=== PATIENT | female | born 1985 | race Caucasian/White ===

== ENCOUNTER 2020-12-17 16:28 | Outpatient (CLI) | payer BC, SELFPAY | END 2020-12-17 16:29 | disposition home or self-care (01) | LOC: ANHCOVIDVC 16:28 | PROVIDERS: PCP Internal Medicine | DX: Z23 Encounter for immunization (principal) | CPT/HCPCS: 0001A; 91300 ==

== ENCOUNTER 2021-01-07 13:26 | Outpatient (CLI) | payer BC, SELFPAY | END 2021-01-07 13:27 | disposition home or self-care (01) | LOC: ANHCOVIDVC 13:26 | PROVIDERS: PCP Internal Medicine | DX: Z23 Encounter for immunization (principal) | CPT/HCPCS: 0002A; 91300 ==

== ENCOUNTER 2021-12-31 15:23 | Outpatient (CLI) | payer BC, SELFPAY | END 2021-12-31 15:24 | disposition home or self-care (01) | PROVIDERS: PCP Internal Medicine; Visit Provider Obstetrics & Gynecology | DX: N99.85 Post endometrial ablation syndrome (principal) | CPT/HCPCS: 36415; 86850; 86900; 86901 ==

== ENCOUNTER 2022-01-06 00:32 | Day surgery (SDC) | payer BC, SELFPAY ==
[2021-12-28 13:44] VITALS: BMI 21.7
--- NOTE | 2021-12-28 13:59 | PC.NURSE ---
Report to the Outpatient Waiting Room, entrance under the green pavilion located off [facility], at time 6:00 on date 01/06/22. OR Time: 7:30. - You and your visitor will be asked a series of questions to screen for COVID 19 for your protection. - A mask is required within the hospital. One visitor will be allowed to accompany the patient into the hospital. Patients visitor will be instructed to remain with patient at all times or leave the building. We will allow the visitor to come back to the postoperative area when patient is ready. Preoperative COVID Testing Requirements: No COVID Test needed if: (proof is required; if not received patient will have Rapid Test prior to entry) - Patient has received COVID Vaccine at least 14 days prior to procedure date or - Patient has positive COVID test result within last 90 days of surgery date. COVID Test needed if above criteria is not met Patients may have clear liquids (water, carbonated beverages, clear teas, apple juice) until 3 hours prior to surgery (4:30) with a maximum of 20 ounces. - No food from midnight until time of surgery Take the following medications with a SIP of water the morning of surgery: NONE Medications to discontinue per physician: VITAMINS/SUPPLEMENTS Date to take last dose: 01/02/22 Please no make-up, nail cuban, hairspray, perfume, deodorant, or body powder the day of surgery. No jewelry (including any body piercings) or valuables the day of surgery, leave them at home. Please take a shower or bath the night before, or the morning of, surgery with an antibacterial soap. Wear comfortable, loose fitting clothing. - Jewelry must be removed prior to entering the operating room. Rings and piercings that are not removed may be cut off. - The hospital will not accept responsibility for valuables. - Please leave all valuables, including medications, at home the day of surgery. If you are going home after surgery, a licensed concrete pile driver operator must drive you home. - NO public transportation without another adult. - We recommend that an adult stay with you for 24 hours following discharge. - We also recommend that you do not drive, make important decision, drink alcoholic beverages, or take any drugs that were not prescribed by your health care provider for at least 24 hours after your discharge time. Follow any additional instructions given to you from your surgeon. Telephone instructions given to DEREK PICKARD and asked if any additional questions and then verbalized understanding. Patient advised to call surgeon office or pre surgery nurse liaison [phone] if any additional questions.
--- NOTE | 2022-01-05 15:33 | P.PNAN_ITS ---
Anes - Initial Pre Proc Eval Procedure: Operation Date: 01/06/22 07:30 Proposed Procedures p Robotic Assisted Total Laparoscopic Hysterectomy with Bilateral Salpingectomy - Geoffrey Sheikh MD Date/Time: 01/05/22 15:33 Surgeon: Geoffrey Sheikh MD Pre Op Diagnosis: menometrorrhagia Patient Data Age: 36 Gender: F Height: 1.68 m Weight: 61.24 kg Allergies Allergy/AdvReac Type Severity Reaction Status Date / Time loratadine Allergy Severe see below Verified 12/28/21 13:42 Home Medications Medication Instructions Recorded Confirmed Type citalopram 10 mg tablet 10 mg PO HS 11/09/21 12/28/21 History fexofenadine 60 mg tablet 60 mg PO Q12H 11/09/21 12/28/21 History montelukast 10 mg tablet 10 mg PO HS 11/09/21 12/28/21 History lactobacillus combo no.11 1 cap PO DAILY 12/28/21 12/28/21 History [Probiotic] multivitamin 1 tablet PO DAILY 12/28/21 12/28/21 History Patient hx anesthesia problems: none Family hx anesthesia problems: none Results Review: All pre-operative results and documents have been reviewed as part of the pre-operative evaluation. [facility] Past Medical History Medical History (Updated 01/06/22 @ 07:05 by Kraig Cruz MD) Anxiety Leiomyoma Migraines Surgical History Surgical History H/O ovarian cystectomy 05/19/17 lt ovarian cystectomy w/Hscope D&C/novasure ablation--dermoid/benign mature tertoma History of oophorectomy, unilateral 04/09/18 ovarian torsion History of tonsillectomy 1993 Family History Family History Father Hypertension Grandparent Heart disease paternal grandfather Diabetes mellitus paternal grandfather Social History Social History Smoking status: Never smoker Alcohol intake: never Substance use: never Substance use type: does not use Living arrangements: with family Additional living arrangements comments: spouse Additional occupation/education comments: teacher Gender identity (if verbalized by the patient): Female Sexual Orientation (if Verbalized by the Patient): Straight or Heterosexual Spiritual care concerns: No Anes - Eval Final PreProcedure Day of Procedure 01/05/22 15:33 Patient weight: normal Heart: regular rate and rhythm Lungs: clear to auscultation and normal air movement Airway: Mallampati scale class II Neurological: alert and oriented Last oral intake: >/= 8 hours ASA classification: II Emergent: no Anesthetic plan: proceed Anesthesia type and monitoring: general ETT Results Review: All pre-operative results and documents have been reviewed as part of the pre-operative evaluation. Informed Consent: The patient's anesthetic plan and its attendant risks and benefits were discussed with the patient/family/POA. Questions were solicited and answers provided to the satisfaction of the patient/family/POA.
--- NOTE | 2022-01-05 15:44 | PM.IMHP ---
H&P: HPI History of Present Illness Date/Time: 01/05/22 15:44 36-year-old 2 para 2001 female presents for surgical correction of heavy vaginal bleeding cramping clotting and pelvic pain. She had an endometrial ablation years ago and had done reasonably well but is now having cyclical pain and discomfort over the past 3-4 months. She has been evaluated emergency room with CT scan which ruled out appendicitis also ultrasound revealed no other significant abnormalities. Of significance she also has a history of right salpingo-oophorectomy due to ovarian torsion and a left ovarian cystectomy due to dermoid cyst. Denies any urinary and or stool symptomatology. Chief Complaint: Pelvic pain Review of Systems Review of Systems: All systems reviewed & are unremarkable except as noted in HPI and below PMFSH Past Medical History Medical History Anxiety Migraines Surgical History Surgical History H/O ovarian cystectomy 05/19/17 lt ovarian cystectomy w/Hscope D&C/novasure ablation--dermoid/benign mature tertoma History of oophorectomy, unilateral 04/09/18 ovarian torsion History of tonsillectomy 1993 Family History Family History Father Hypertension Grandparent Heart disease paternal grandfather Diabetes mellitus paternal grandfather Social History Social History Smoking status: Never smoker Alcohol intake: never Substance use: never Substance use type: does not use Additional living arrangements comments: spouse Additional occupation/education comments: teacher Gender identity (if verbalized by the patient): Female Sexual Orientation (if Verbalized by the Patient): Straight or Heterosexual Spiritual care concerns: No Meds Home Medications and Allergies Home Medications Medication Instructions Recorded Confirmed Type citalopram 10 mg tablet 10 mg PO HS 11/09/21 12/28/21 History fexofenadine 60 mg tablet 60 mg PO Q12H 11/09/21 12/28/21 History montelukast 10 mg tablet 10 mg PO HS 11/09/21 12/28/21 History lactobacillus combo no.11 1 cap PO DAILY 12/28/21 12/28/21 History [Probiotic] multivitamin 1 tablet PO DAILY 12/28/21 12/28/21 History Allergies Allergy/AdvReac Type Severity Reaction Status Date / Time loratadine Allergy Severe see below Verified 12/28/21 13:42 Exam Const: General: cooperative, healthy appearing and comfortable Resp: Effort & Inspection: normal respiratory effort Auscultation: clear to auscultation bilaterally Cardio: Rate: regular rate Rhythm: regular rhythm GI: Inspection: normal to inspection Auscultation: normal bowel sounds : External Female Exam: normal external appearance Speculum Exam - Vagina: normal appearance of the vagina Speculum Exam - Cervix: normal appearance of the cervix Bimanual exam- vagina & uterus: enlarged ( 8-10 week size) and Uterine tenderness Bimanual Exam- Adnexa, other: normal adnexae Assessment and Plan Assessment and plan (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 In light of prior endometrial ablation I have discussed with her the potential for difficulty with proceeding laparoscopically but not likely to need have conversion to open procedure though this has been discussed.
[2022-01-06] VITALS (12 sets, daily range): BP systolic 92–112; BP diastolic 54–77; PULSE 63–101; RESP 9–16; TEMP 36.2–37.1; O2SAT 96–100
[2022-01-06] MEDS: LACTATED RINGERS 1,000 ML 30 ML IV CONT ×2 (06:30→09:07)
[2022-01-06] MEDS: ACETAMINOPHEN 500 MG TABLET 1000 MG PO (06:44)
[2022-01-06] MEDS: KETOROLAC 15 MG/ML VIAL (*BKC) IV PUSH (06:56)
--- NOTE | 2022-01-06 07:14 | WPDHPUPDATE1 ---
History and Physical Update Update Date/Time: 01/06/22 07:14 History and Physical has been reviewed, including an updated exam of the patient. There are NO changes in the patient's condition. Risks, benefits, and alternatives have been discussed and questions answered. Patient agrees to proceed with procedure.
--- NOTE | 2022-01-06 09:24 | PM.OP ---
Procedure Note - Brief Procedure Note - Brief Date of procedure: 01/06/22 Pre-op diagnosis: menometrorrhagia Failed endometrial ablation Post ablation syndrome Post-op diagnosis: Same Procedure performed: Buttock assisted laparoscopic hysterectomy with left salpingectomy (prior right salpingectomy with RSO) Description of procedure: Patient was prepped and draped usual manner for this procedure. Cervical instruments were placed for uterine mobility throughout the case. Attention was then placed the abdomen and trocar sites marked incised and trocars placed under direct visualization. The DA Mehrdad system of then docked to these trocars and instruments were placed under direct visualization. Surgeon moved to the console have her stool left mesosalpinx was cauterized and cut and the tube was removed. Ovarian utero-ovarian ligament was then cauterized cut and the round ligament was cauterized and cut bilaterally. Bladder flap was developed without difficulty posterior leaf of the broad ligament was also incised to skeletonize the uterine vessels. The uterine vessels were cauterized and cut without difficulty. Posterior colpotomy incision was made and carried circumferentially to remove the cervix from the vaginal cuff. Uterus was then delivered into the vagina and the cuff was closed using V lock suture from the right angle to the midline from the left angle to midline in a running manner. Irrigation was undertaken there was no bleeding at this point seizure was considered terminated. Gas allowed to escape incisions approximated using 4-0 Monocryl patient was then sent to recovery room in stable condition. Anesthesia: GLMA Surgeon: Geoffrey Sheikh MD Estimated blood loss (mL): 100 Drains: No Packing: No Pathology: Yes Complications: No immediate complications Condition: Stable Disposition: PACU Findings: Mildly enlarged uterus. Right tube and ovary surgically absent. Normal-appearing appendix.
[2022-01-06] MEDS: fentaNYL CITRATE INJ (*CRX) 100 MCG/2 ML VIAL 25 MCG IV PUSH ×4 (09:28→10:17)
[2022-01-06] MEDS: DEXTROSE 5%/0.45% SOD CHL 1,000 ML 125 ML IV CONT (10:58)
--- NOTE | 2022-01-06 11:27 | OBPPTRN ---
1040 Patient transferred to post room #291 via bed. Support person present. Oriented to unit, room, information board, admission packet and security measures. Patient verbalizes understanding.
--- NOTE | 2022-01-06 12:49 | PC.NURSE ---
On 01/06/22, the student, Husam Kaba, provided care and completed [facility] documentation on this patient. I have reviewed the student's documentation and agree with the findings.
[2022-01-06] MEDS: LACTATED RINGERS 1,000 ML 125 ML IV CONT ×2 (13:42→21:27)
[2022-01-06] MEDS: SCOPOLAMINE 1.5 MG PATCH TRANSDERM (14:09)
[2022-01-06] MEDS: KETOROLAC 30 MG/ML VIAL (*BKC) IV PUSH (14:16)
[2022-01-06] MEDS: HYDROcodone/acetaminophen (*CRX) 5-325 MG TABLET 1 TAB PO ×2 (17:39→21:25)
[2022-01-06] MEDS: CITALOPRAM HYDROBROMIDE 10 MG TABLET PO (20:10)
[2022-01-06] MEDS: MONTELUKAST SODIUM 10 MG TABLET PO (20:10)
[2022-01-07 00:55] VITALS: BP 85/53; PULSE 77; RESP 16; TEMP 36.8; O2SAT 97
[2022-01-07] MEDS: IBUPROFEN 600 MG TABLET PO (03:26)
[2022-01-07] MEDS: HYDROcodone/acetaminophen (*CRX) 5-325 MG TABLET 1 TAB PO ×2 (03:26→09:11)
[2022-01-07 03:36] VITALS: BP 87/53; PULSE 72; RESP 16; TEMP 36.6; O2SAT 98
[2022-01-07 05:44] LABS: Basophils Percent Auto 0.2 % (0.2-1.2); Eosinophils Absolute Auto 0.1 K/mm3 (0-0.3); Eosinophils Percent Auto 0.7 % (0-4.4); Hematocrit 34.3 % (37.0-47.0); Hemoglobin 11.5 g/dL (12.0-15.0); Immature Granulocyte Absolute 0.07 K/mm3 (0.00-0.031); Immature Granulocyte Percent A 0.6 % (0-0.5); Lymphocytes Absolute Auto 2.52 K/mm3 (0.9-3.2); Lymphocytes Percent Auto 20.8 % (18.3-44.2); Mean Corpuscular HGB Conc 33.5 g/dl (32-36); Mean Corpuscular Hemoglobin 32.1 pg (26-34); Mean Corpuscular Volume 95.8 fl (80-100); Mean Platelet Volume 9.8 fl (7.4-10.4); Monocytes Absolute Auto 0.7 K/mm3 (0.1-0.6); Monocytes Percent Auto 5.9 % (2.6-8.5); Neutrophils Absolute Auto 8.7 K/mm3 (1.3-6.7); Neutrophils Percent Auto 71.8 % (45.5-73.1); Platelet Count Result 204 k/mm3 (150-375); Red Blood Count 3.58 M/mm3 (4.2-5.4); Red Cell Distribution Width 11.9 % (11.5-14.5); White Blood Count 12.1 K/mm3 (4.5-10.0)
[2022-01-07 08:00] VITALS: BP 107/61; PULSE 61; RESP 18; TEMP 36.8; O2SAT 100
[2022-01-07 08:30] VITALS: BP 92/63; PULSE 64; RESP 16; TEMP 36.6; O2SAT 100
--- NOTE | 2022-01-07 08:57 | P.PNAN_ITS ---
Anes - Prog Note Post-Op Date/Time: 01/07/22 08:57 Cardiovascular status: normal Respiratory status: normal Airway patency: baseline Mental status: baseline Post-Op hydration status: normal Vital Signs: Last Vital Signs Temp 36.6 C 01/07/22 08:30 Pulse 64 01/07/22 08:30 Resp 16 01/07/22 08:30 BP 92/63 L 01/07/22 08:30 Pulse Ox 100 01/07/22 08:30 Pain Score (VAS): 0 I/O: Intake & Output 01/06/22 01/07/22 01/07/22 23:59 07:59 15:59 Intake Total 1740 300 Output Total 300 500 Balance 1440 -200 Laboratory Tests 01/07/22 03:35 01/07/22 03:35 WBC 12.1 H RBC 3.58 L Hgb 11.5 L Hct 34.3 L MCV 95.8 MCH 32.1 MCHC 33.5 RDW 11.9 Plt Count 204 MPV 9.8 Immature Gran % (Auto) 0.6 H Neut % (Auto) 71.8 Lymph % (Auto) 20.8 [facility] % (Auto) 5.9 Eos % (Auto) 0.7 Baso % (Auto) 0.2 Lymph # (Auto) 2.52 [facility] # (Auto) 0.7 H Eos # (Auto) 0.1 Baso # (Auto) 0.0 Abs Immat Gran (auto) 0.07 H Absolute Neuts (auto) 8.7 H Absolute Nucleated RBC 0.0 Nucleated RBC % 0.0 Post-procedural complaints: none Patient Feedback: Patient satisfied with anesthetic care.
[2022-01-07] MEDS: SIMETHICONE 80 MG TAB.CHEW PO (09:10)
[2022-01-07] MEDS: DOCUSATE SODIUM 100 MG CAPSULE PO (09:25)
== END 2022-01-07 09:33 | disposition home or self-care (01) ==
LOC: ANHSURGERY 06:17 → ANHOB2 10:34
PROVIDERS: PCP Internal Medicine; Visit Provider Obstetrics & Gynecology
PROC: (CPT 58571; principal; 2022-01-06 07:30)
DX: N92.1 Excessive and frequent menstruation with irregular cycle (principal); N84.1 Polyp of cervix uteri; N73.6 Female pelvic peritoneal adhesions (postinfective); R10.2 Pelvic and perineal pain; N99.85 Post endometrial ablation syndrome; F41.9 Anxiety disorder, unspecified
CPT/HCPCS: 58571; S2900; 36415; 85025; 88307; 99199; A9270; J1100; J1170; J1885; J2250; J2405; J2704; J2710; J3010; J7030; J7120

== ENCOUNTER 2023-04-27 11:48 | Emergency (ER) | payer BC, SELFPAY ==
--- NOTE | ~2023-04-27 | XR_ITS ---
EXAMINATION: XR elbow LT min 3V DATE: 04/27/2023 12:29 INDICATION: Left elbow pain. Fall. TECHNIQUE: 5 views of left elbow were obtained. COMPARISON: None. FINDINGS: Bone alignment is normal. No fracture. Joint spaces are normal. There is a large elbow join t effusion. IMPRESSION: 1. Large elbow joint effusion. No fracture identified. Reviewed, dictated and finalized at location A.
[2023-04-27 12:01] VITALS: BP 118/63; PULSE 87; RESP 16; TEMP 36.5; O2SAT 99
--- NOTE | 2023-04-27 12:16 | ED.UPPEXIN ---
HPI - Extremity Injury (Upper) General Chief Complaint: Extremity Injury, Upper Stated Complaint: Lt Hand and Arm Pain Due To Fall Time Seen by Provider: 04/27/23 12:08 Source: patient and RN notes reviewed Mode of arrival: ambulatory Limitations: no limitations History of Present Illness HPI narrative: Patient presents today complaining of left elbow pain. She fell yesterday onto an outstretched hand while she was bowling. She does report some tingling to the left hand and states she is unable to fully extend her elbow. Currently rates her pain 04/18 and has been taking ibuprofen and applying ice with no relief. Related Data Home Medications Medication Instructions Recorded Confirmed citalopram 10 mg tablet 10 mg PO HS 11/09/21 04/27/23 fexofenadine 60 mg tablet (Chen 60 mg PO Q12H 11/09/21 04/27/23 Allergy) montelukast 10 mg tablet 10 mg PO HS 11/09/21 04/27/23 multivitamin 1 tablet PO DAILY 12/28/21 04/27/23 Allergies Allergy/AdvReac Type Severity Reaction Status Date / Time loratadine Allergy Severe see below Verified 04/27/23 11:51 Review of Systems Review of Systems: CONSTITUTIONAL: Denies body aches, fever, chills, or sweats. EYES: Denies visual changes, redness, or discharge. ENT: Denies rhinorrhea, congestion, sore throat, or otalgia. CARDIOVASCULAR: Denies chest pain, palpitations, or edema. RESPIRATORY: Denies cough or dyspnea. GASTROINTESTINAL: Denies abdominal pain, nausea, vomiting, or diarrhea. GENITOURINARY: Denies dysuria or hematuria. SKIN: Denies rash, itching, or wounds. MUSCULOSKELETAL: Denies back pain, or myalgia. + left elbow pain NEUROLOGIC: Denies headache, numbness, or weakness.+ tingling of left hand PSYCH: Denies depression or anxiety. [facility] Past Medical History Medical History Anxiety Leiomyoma Migraines Surgical History Surgical History H/O ovarian cystectomy 05/19/17 lt ovarian cystectomy w/Hscope D&C/novasure ablation--dermoid/benign mature tertoma H/O: hysterectomy (01/06/22) RATLH with Left salpingectomy History of oophorectomy, unilateral 04/09/18 ovarian torsion History of tonsillectomy 1993 Family History Family History Father Hypertension Grandparent Heart disease paternal grandfather Diabetes mellitus paternal grandfather Social History Social History Smoking status: Never smoker Alcohol intake: never Substance use: never Substance use type: does not use Living arrangements: with family Additional living arrangements comments: spouse Occupation/Education: occupation Additional occupation/education comments: teacher Gender identity (if verbalized by the patient): Female Sexual Orientation (if Verbalized by the Patient): Straight or Heterosexual Spiritual care concerns: No Comments At time of signature, I have reviewed and agree with nursing past medical, surgical, social and family history unless otherwise noted. Please see nursing chart for further information. There is no relevant family history pertinent to the presenting complaint Exam Narrative: GENERAL: Well-appearing, well-nourished, and in no acute distress. HEAD: Normocephalic, atraumatic. EYES: EOMI. No redness or drainage. Conjunctivae normal. ENT: Mucous membranes pink and moist. NECK: Normal AROM. CHEST: No respiratory distress. EXTREMITIES: Left arm: No tenderness to the posterior elbow. Patient has tenderness to the antecubital fossa with a extension of the elbow. Patient does not have full extension of the elbow as she states it will not fully extend. Pain to the anterior elbow with internal and external rotation of the wrist. No edema, ecchymosis, or erythema of the arm. No deformity n
== END 2023-04-27 12:45 | disposition home or self-care (01) ==
PROVIDERS: Emergency Provider Nurse Practitioner; PCP Internal Medicine
DX: M25.422 Effusion, left elbow (principal); F41.9 Anxiety disorder, unspecified
CPT/HCPCS: 73080; 99213; A4565; G0463

== ENCOUNTER → 2023-08-19 10:42 | Outpatient (CLI) | payer BC, SELFPAY ==
--- NOTE | ~2023-08-19 | MM_ITS ---
EXAMINATION: MM screening kathya BI w sesar HISTORY: Screening TECHNIQUE: Craniocaudal and mediolateral oblique 3-D tomosynthesis images were obtained and synthetic 2-D images were generated. CAD analysis was submitted and interpreted. COMPARISON: No prior mammogram is available for comparison at this institution. BREAST PARENCHYMAL COMPOSITION: The breasts are extremely dense, which lowers the sensitivity of mamm ography FINDINGS: There is no evidence of suspicious mass, calcification, or architectural distortion to sugg est malignancy in either breast. There has been no suspicious interval change. IMPRESSION: 1. No mammographic evidence of malignancy. 2. Recommend routine screening mammography in one year. BI-RADS Category 1: Negative Reviewed, dictated and finalized at location A. MERY WORKER
== END ==
PROVIDERS: PCP Obstetrics & Gynecology; Visit Provider Obstetrics & Gynecology
DX: Z12.31 Encounter for screening mammogram for malignant neoplasm of breast (principal)
CPT/HCPCS: 77063; 77067

== ENCOUNTER 2025-02-28 08:15 | Outpatient (CLI) | payer BC, SELFPAY ==
--- NOTE | ~2025-02-28 | MM_ITS ---
EXAMINATION: MM screening kathya BI w sesar HISTORY: Screening TECHNIQUE: Craniocaudal and mediolateral oblique 3-D tomosynthesis images were obtained and synthetic 2-D images were generated. CAD analysis was submitted and interpreted. COMPARISON: 08/19/2023 BREAST PARENCHYMAL COMPOSITION: Dense: The breasts are extremely dense, which lowers the sensitivity of mammography. FINDINGS: There is no evidence of suspicious mass, calcification, or architectural distortion to sugg est malignancy in either breast. There has been no suspicious interval change. IMPRESSION: 1. No mammographic evidence of malignancy. 2. Recommend routine screening mammography in one year. BI-RADS Category 1: Negative Reviewed, dictated and finalized at location []
--- OUTSIDE RECORDS SUMMARY | 2025-02-28 08:18 | XMS_ITS | Clinical Summary ---
Author Organization [facility] Address [address] [place] [address] Care Team Providers Care Brick Burner Head Name Role Phone Keyanna Argueta MD Primary Care Provider [phone] Source Comments [facility],non-[facility] Affiliates and Associated Physician Practices is amultiple site organization consisting of ambulatory clinics and hospital sitesin [place], [place]. This disclosure is being madepursuant to the Care Everywhere program and may not contain all information available regarding this patient. 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 Gender Identity Not on file Sexual Orientation Not on file Last Filed Vital Signs Vital Sign Reading Time Taken Comments Blood Pressure 145/95 05/26/2013 10:42 PM CDT Pulse - - Temperature 36.5 C (97.7 F) 05/26/2013 10:42 PM CDT Respiratory Rate 16 05/26/2013 10:42 PM CDT Oxygen Saturation 100% 05/26/2013 10:42 PM CDT Inhaled Oxygen Concentration - - Weight 77.1 kg (170 lb) 05/26/2013 10:42 PM CDT Height 167.6 cm (5' 6 ) 05/26/2013 10:42 PM CDT Body Mass Index 27.44 05/26/2013 10:42 PM CDT Plan of Treatment Health Maintenance Due Date Last Done Comments LIPID TESTING 1983 MAMMOGRAM 1983 HIV SCREENING 1998 HEPATITIS C SCREENING 01/04/2001 DTAP/TDAP/TD VACCINES (1 - Tdap) 2002 HEPATITIS B VACCINE (1 of 3 - 19+ 3-dose series) 2002 COVID-19 VACCINE (1 - 2023-2 5 season) 2024 DEPRESSION SCREENING 10/10/2024 INFLUENZA VACCINE (Season Ended) 2025 ZOSTER VACCINE (1 of 2) 2033 HIB VACCINE Aged Out No longer eligi ble based on patient's age to complete this topic HPV VACCINE Aged Out No longer eligi ble based on patient's age to complete this topic MENINGOCOCCAL (Group B) VACC INE SHARED DECISION-MAKING Aged Out No longer eligibl e based on patient's age to complete this topic MENINGOCOCCAL GROUPS A/C/Y/W VACCINE Aged Out No longer eligible b ased on patient's age to complete this topic PNEUMOCOCCAL VACCINE Aged Out No long er eligible based on patient's age to complete this topic Insurance [facility] Care Teams Brick Burner Head Relationship Specialty Start Date End Date Keyanna Argueta MD [address] [place] [address] [place] [address] [phone] PCP - General 01/07/22
--- OUTSIDE RECORDS SUMMARY | 2025-02-28 08:18 | XMS_ITS | Clinical Summary ---
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 Gender Identity Not on file Sexual Orientation Not on file Plan of Treatment Health Maintenance Due Date Last Done Comments Hepatitis C Virus (HCV) Screening 1983 TdaP Immunization 1983 Hepatitis B Immunization (1 of 3 - 19+ 3-dose series) 2002 Pap Smear 01/10/2004 Cervical Cancer Screening (CCS) 2013 HPV/Cotest 2013 Discussion re Starting/Frequency of Mammograms 2023 Influenza Immunization (#1) 06/10/202407/10, 07/24/2019, 09/10/2018, Additional history exists SARS-COV-2 Immunization ( season) 2024 Respiratory Syncytial Virus (RSV) Immunization (Adult) (1 - 1-dose 75+ series) 2058 Meningococcal Immunization (ACWY) Aged Out No longer eligible based on patient's age to complete this topic Pneumococcal Immunization Combined Aged Out No longer eligible based on patient's age to complete this topic Rotavirus Immunization Aged Out No lo nger eligible based on patient's age to complete this topic
== END 2025-02-28 08:16 | disposition home or self-care (01) ==
LOC: CHSIMG 08:15
PROVIDERS: PCP Obstetrics & Gynecology; Visit Provider Obstetrics & Gynecology
DX: Z12.31 Encounter for screening mammogram for malignant neoplasm of breast (principal)
CPT/HCPCS: 77063; 77067

== ENCOUNTER 2025-05-20 15:47 | Emergency (ER) | payer BC, SELFPAY ==
--- NOTE | ~2025-05-20 | CT_ITS ---
CLINICAL INDICATION: Right lower abdominal pain, nausea vomiting and diarrhea COMPARISON: 03/31/2018. TECHNIQUE: Multiple contiguous axial images of the abdomen and pelvis were performed following the ad ministration of with 100 mL Omnipaque-350 intravenous contrast The dose-length product (DLP) was 319.57 mGy-cm. Automated exposure control and iterative reconstruction technique were employed. FINDINGS/OBSERVATIONS: Visualized lower thorax: The bilateral lung bases are clear. The heart is of normal size, without pericardial effusion. Small hiatal hernia is present. Liver: The liver demonstrates homogeneous enhancement and is not enlarged. Gallbladder and biliary system: The gallbladder is only minimally distended, and otherwise unremarkable. Pancreas: The pancreas enhances homogeneously without ductal dilatation. Spleen: The spleen enhances homogeneously and is not enlarged. Kidneys: Mild right-sided hydroureteronephrosis without an obstructing stone identified, possibly sec ondary to bladder distention. Multiple phleboliths are identified within the pelvis, increased in size but unchanged in position fr om 2018. The remainder of the bilateral kidneys enhance symmetrically without renal calculi. No left-sided hydronephrosis is present. Adrenal glands: Unremarkable. Gastrointestinal tract: Bowel loops are unremarkable. Appendix: The air-filled appendix is of normal caliber (axial series, images 113 through 125) Vasculature: Unremarkable. Lymph nodes: No pathologically enlarged or morphologically suspicious lymph nodes within the retroperitoneum or at the root of the mesentery. Pelvic structures: The bladder is distended, and otherwise unremarkable. The uterus and right ovary are surgically absent Body wall and musculoskeletal: No significant degenerative disease within the lower thoracic or lumbosacral spine. IMPRESSION: Mild right-sided hydroureteronephrosis, possibly secondary to bladder distention. Otherwise, no acute findings within the lower chest, abdomen or pelvis, as detailed above. Reviewed, dictated and finalized at location A. IMPRESSION: Mild right-sided hydroureteronephrosis, possibly secondary to bladder distentio n. Otherwise, no acute findings within the lower chest, abdomen or pelvis, as deta iled above.
--- NOTE | ~2025-05-20 | CT_ITS ---
History: Altered mental status with blurry vision PROCEDURE: CT head without contrast. COMPARISON: None TECHNIQUE: Axial imaging of the head performed from the skull base to the vertex without IV contrast. Sagittal a nd coronal reformations obtained. DLP: 605 mGy-cm FINDINGS: The ventricles are normal in size, shape and position. There is no mass, mass effect or midline shift. There is no abnormal extra-axial fluid collection or intracranial hemorrhage. Visualized paranasal sinuses are clear. The mastoid air cells are well aerated. No acute displaced fractures within the overlying cranium. Impression: No acute intracranial hemorrhage or suspicious mass effect. Reviewed, dictated and finalized at location A. Impression: No acute intracranial hemorrhage or suspicious mass effect.
[2025-05-20 15:48] VITALS: BP 167/94; PULSE 108; RESP 20; TEMP 36.4; O2SAT 98
--- OUTSIDE RECORDS SUMMARY | 2025-05-20 15:49 | XMS_ITS | Clinical Summary ---
Author Organization [facility] Address [address] [place] [address] Care Team Providers Care Fourth Officer Name Role Phone Keyanna Argueta MD Primary Care Provider Source Comments [facility],non-[facility] Affiliates and Associated Physician Practices is amultiple site organization consisting of ambulatory clinics and hospital sitesin [place], [place], [place] and [place]. This disclosure is being madepursuant to the Care Everywhere program and may not contain all information available regarding this patient. 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 Gender Identity Not on file Sexual Orientation [...] 10:42 PM CDT Height 167.6 cm (5' 6) 05/26/2013 10:42 PM CDT Body Mass Index 27.44 05/26/2013 10:42 PM CDT Plan of Treatment Health Maintenance Due Date Last Done Comments LIPID TESTING 1983 MAMMOGRAM 1983 HIV SCREENING 1998 HEPATITIS C SCREENING 01/04/2001 DTAP/TDAP/TD VACCINES (1 - Tdap) 2002 HEPATITIS B VACCINE (1 of 3 - 19+ 3-dose series) 2002 HPV VACCINE (1 - 3-dose SCDM series) 2010 COVID-19 VACCINE (1 - 2023-2 5 season) 2024 DEPRESSION SCREENING 10/10/2024 INFLUENZA VACCINE (#1) 2025 ZOSTER VACCINE (1 of 2) 2033 [...] patient's age to complete this topic Insurance [facility] Care Teams Fourth Officer Relationship Specialty Start Date End Date Keyanna Argueta MD [address] [place] [address] [place] [phone] PCP - General 01/07/22
--- OUTSIDE RECORDS SUMMARY | 2025-05-20 15:49 | XMS_ITS | Encounter Summary ---
Author Organization [facility] Address [address] [place] [address] Care Team Providers Care Ground Services Instructor Name Role Phone Quinten Montelongo MD Primary Care Provider [phone] Encounter Details Date Type Department Care Team (Late st Contact Info) Description 05/15/2025 Results Follow-Up [facility] Medical Group Family & Internal Medicine [facility] [address] [place] [address] Quinten Montelongo MD [facility] [place], [place] [id number] MRI BRAIN WWO CON Social History Tobacco Use Types Packs/Day Years Used Date Smoking Tobacco: Never Smokeless Tobacco: Never Alcohol Use Standard Drinks/Week Comments Never 0 (1 standard drink = 0.6 oz pur e alcohol) AUDIT-C Answer Date Recorded Frequency of Alcohol Consumption Never 01/25/2019 Average Number of Drinks Not on file 019 Frequency of Binge Drinking Not on file 01/08 PHQ-2 Answer Date Recorded Patient Health Questionnaire-2 Score 0 05/14/2025 Comments No Sex and Gender Information Value Date Recorded Sex Assigned at Female 04/18/2025 2:02 PM CDT Legal Sex Female 8:51 PM CDT Gender Identity Female 05/14/2025 10:59 AM CDT Sexual Orientation Not on file documented as of this encounter Progress Notes * Quinten Montelongo MD - 05/15/2025 12:33 PM CDT Normal Brain MRI documented in this encounter Plan of Treatment Upcoming Encounters Date Type Department Care Team (Late st Contact Info) Description 06/17/2025 11:00 AM CDT Office Visit [facility]pecialty Care - [facility] [address] [facility], [address] [place] [address] Carey Gutiérrez NP 3 [facility] [address] [place] [address] 06/25/2025 9:00 AM CDT Office Visit [facility] & Internal Medicine [address] [address] Quinten Montelongo MD [address] [place] [address] 09/04/2025 7:00 AM DIRECTOR OF BROADCAST Office Visit [facility] [address] [phone] Quinten Montelongo MD [address] [place] [address] documented as of this encounter Visit Diagnoses Not on filedocumented in this encounter Additional Health Concerns Assessment Noted Time PHQ-9 Depression Total Score: 0 10/01/20 21 8:10 AM DIRECTOR OF BROADCAST documented as of this encounter Care Teams Ground Services Instructor Relationship Specialty Start Date End Date Quinten Montelongo MD [address] [place] [address] PCP - General INTERNAL MEDICINE 01/25/19 documented as of this encounter
--- OUTSIDE RECORDS SUMMARY | 2025-05-20 15:49 | XMS_ITS | Encounter Summary ---
Author Organization [facility] Address [address] [place] [address] Care Team Providers Care Driller Multiple Spindle Name Role Phone Quinten Montelongo MD Primary Care Provider Reason for Referral * Medication Prior Authorization - Authorized Specialty Diagnoses / Procedures Referred By Contac t Referred To Contact Diagnoses Chronic migraine with aura without status migrainosus, not intractable Emmanuel Arnold DO [address] [place] [address] Phone: tel: fax: Referral ID Status Reason Start Date Expiration Date V isits Requested Visits Authorized [id number] Authorized 1 1 Reason for Visit * Reason Onset Date Comments Medication Problem 05/20/2025 Encounter Details Date Type Department Care Team (Late st Contact Info) Description 05/20/2025 Telephone [facility] Medical Group Family & Internal Medicine [place] [address] [place] [address] Quinten Montelongo MD [address] [place] [address] Medication Problem Social History Tobacco Use Types Packs/Day Years [...] as of this encounter Progress Notes * Emmanuel Arnold DO - 05/20/2025 1:23 PM CDT Sent Ubrelvy. Will send to PCP to evaluate upon his return. * Tejal Arredondo MA - 05/20/2025 1:17 PM CDT Pt is agreeable to trying ubrelvy and comfortable with waiting for preventative migraine medicationchange until Dr. Montelongo is back in the office. * Emmanuel Arnold DO - 05/20/2025 10:48 AM CDT A major medication change like this should be approved by PCP, as this can have side effects. Ubrelvy may be an option if she hasn't tried this as it's in the same class as Nurtec and generally well tolerated. Otherwise, I'd recommend waiting until her PCP comes back. * Tejal Arredondo MA - 05/20/2025 10:30 AM CDT Spoke to patient, topamax was rx'd for migraines. She had mentioned venlafaxine because she thoughtit would help as she was previously on citalopram and d/c'd medication because she didn't feel likeit was needed, but she did feel it helped with her migraines. Since stopping citalopram, she has noticed an increase in anxiety around her migraines, normally stressing about having one, but this medi cation was never mentioned to her by Dr. Montelongo or anyone else to tx migraines. * ANDRY Durham - 05/20/2025 9:06 AM CDT Was this to treat depression? * Penny Otto - 05/20/2025 7:09 AM CDT Patient took her first dose of Topamax on evening and she had burning and pressure behind the eyes with blurry vision. She did not take a second dose. Patient would like to try Venlafaxine in place of the Topamax. [place] in [place]. documented in this encounter Plan of Treatment Upcoming Encounters Date Type Department Care Team (Late st Contact Info) Description 06/17/2025 11:00 AM CDT Office Visit [facility] Multispecialty Care - [facility] 3 [facility], [address] [place] [phone] Carey Gutiérrez NP 3 [facility] [address] [place] [address] 06/25/2025 9:00 AM CDT Office Visit [facility] Family & Internal Medicine [address] [address] Quinten Montelongo MD [address] [place] [address] 09/04/2025 7:00 AM LAND MEASURER Office Visit [facility] Family & Internal Medicine [address] [place] [address] [place] [address] [place] [address] documented as of this encounter Visit Diagnoses Diagnosis Chronic migraine with aura without status migrainosus, not intractable- Primary documented in this encounter Additional Health Concerns Assessment Noted Time PHQ-9 Depression Total Score: 0 10/01/20 21 8:10 AM LAND MEASURER documented as of this encounter Care Teams Driller Multiple Spindle Relationship Specialty Start Date End Date Quinten Montelongo MD [address] [place] [address] PCP - General INTERNAL MEDICINE 01/25/19 documented as of this encounter
--- OUTSIDE RECORDS SUMMARY | 2025-05-20 15:49 | XMS_ITS | Encounter Summary ---
Author Organization [facility] Address [address] [place] [address] Care Team Providers Care Nurses Medical Assistants Phlebotomists Name Role Phone Quinten Montelongo MD Primary Care Provider [phone] Encounter Details Date Type Department Care Team (Latest Contact Info) Description 06/20/2018 Abstract [facility] Medical Group , Rosalva Denton MD Social History Tobacco Use Types Packs/Day Years Used Date Smoking Tobacco: Never Assessed Comments Unknown Sex and Gender Information Value Date Recorded Sex Assigned at Female 04/18/2025 2:02 PM CDT Legal Sex Female 8:51 PM CDT Gender Identity Female 05/14/2025 10:59 AM CDT Sexual Orientation Not on file documented as of this encounter Plan of Treatment Upcoming Encounters Date Type Department Care Team (Late st Contact Info) Description 06/17/2025 11:00 AM CDT Office Visit [facility] Multispecialty Care - [facility] 3 [facility], [address] [place] [phone] Carey Gutiérrez NP 3 [facility] [address] [place] [address] 06/25/2025 9:00 AM CDT Office Visit [facility] Family & Internal Medicine - [address] [phone] Quinten Montelongo MD [address] [place] [phone] 09/04/2025 7:00 AM EDITOR CITY Office Visit [facility] Medical Group Family & Internal Medicine - [place] [address] [place] [address] Quinten Montelongo MD [address] [place] [address] documented as of this encounter Visit Diagnoses Not on filedocumented in this encounter Care Teams Nurses Medical Assistants Phlebotomists Relationship Specialty Start Date End Date Quinten Montelongo MD [address] [place] [address] PCP - General INTERNAL MEDICINE 01/25/19 documented as of this encounter
--- OUTSIDE RECORDS SUMMARY | 2025-05-20 15:49 | XMS_ITS | Clinical Summary ---
Author Organization [facility] Address [address] [place] [address] Care Team Providers Care Manager Summer Name Role Phone Quinten Montelongo MD Primary Care Provider [phone] Allergies Active Allergy Reactions Criticality Noted Date Comments Loratadine Other (see comment) High 04/27/2023 Medications Multiple Vitamin (MULTIVITAMIN) capsule Take 1 capsule by mouth daily. Active Probiotic Product (PROBIOTIC-10 OR) Take 1 tablet by mouth daily. Active fexofenadine 180 MG tablet Take 1 tablet (180 mg total) by mouth nightly at bedtime. Active SUMAtriptan (IMITREX) 100 MG tabletIndications: Migraine without status migrainosus, not intractable, unspecified migraine type TAKE 1 TABLET BY MOUTH AT ONSET OF HEADACHE. MAY REPEAT IN 2 HOUR. MAXIMUM OF 2 TABLETS IN 24 HOUR 30 tablet 09/17/20 24 Active estradiol (CLIMARA) 0.05 MG/24HR Place 1 patch (0.05 mg total) onto the skin once a week. 04/16/20 25 Active LORazepam (ATIVAN) 0.5 MG tabletIndications: Anxiety Take one tablet 30-60 minutes prior to MRI. Must have cattle driver for appointment . 2 tablet 04/22/20 25 Active progesterone (PROMETRIUM) 200 MG capsule 05/10/20 25 Active topiramate (TOPAMAX) 25 MG tabletIndications: Chronic migraine with aura without status migrainosus, not intractable One tablet qhs x 7 days, then one tablet bid x 7 days, then 1 tablet qam and 2 tablets qhs x 7 days then 2 tablets bid 70 tablet 05/14/20 25 Active ubrogepant (UBRELVY) 100 MG tabletIndications: Chronic migraine with aura without status migrainosus, not intractable Take 1 tablet (100 mg total) by mouth 2 (two) times daily as needed for Migraine. Max of 2 tablets (200 mg) in 24 hours 30 tablet 05/20/20 25 Active rimegepant (NURTEC) 75 MG disintegrating tabletIndications: Episodic migraine Take 1 tablet (75 mg total) by mouth daily as needed for Migraine. Max of 1 tablet (75 mg) in 24 hours. 30 tablet 3 04/18/20 25 025 Discontinued Active Problems Problem Noted Date Diagnosed Date Cyst of right ovary 04/27/2018 Overview (10/08/2020): Overview: 33 y.o. (BMI 21, AH) who p/w adnexal mass and mildly elevated Ca-125 above 100. Of note, she has a history of a left ovarian cystectomy for a dermoid. TVUS 03/27 showed [id number] multiloculated cyst. She was counseled regarding low suspicion of malignancy but need for evaluation. Patient underwent LSC RSO/VICTORINO on 05/09/18. Operative findings: mobile mass filling the cul-de-sac on bimanual exam. Filmy adhesive disease from small bowel, large bowel. And appendix to right ovary/mass as well as posterior cul-de-sac and uterus. Right adnexa appeared torsed at the uteroovarian ligament. Pathology: pelvic washing negative for malignancy, final pathology PENDING Elevated cancer antigen 125 (CA-125) 04/27/2018 Overview (10/08/2020): Overview: Added automatically from request for surgery [id number] Anxiety 08/03/2017 Migraine headache 03/09/2017 Encounters Date Type Department Care Team Description 05/20/2025 Telephone [facility] Family & Internal Medicine [address] [address] Quinten Montelongo MD Prior Authorization (Ubrelvy 100 mg tablets ) 05/20/2025 Telephone [facility] & Internal Medicine [address] [address] Quinten Montelongo MD Medication Problem 05/15/2025 Results Follow-Up [address] [address] Quinten Montelongo MD MRI BRAIN WWO CON 05/14/2025 10:20 AM CDT Office Visit [address] [address] Quinten Montelongo MD Headache (1 month f/u, MRI results, Nurtec not working) 05/14/2025 Travel 05/06/2025 8:10 AM CDT - 05/06/2025 11:59 PM CDT Hospital Encounter [facility] [place] [address] [place] [address] Quinten Montelongo MD Discharge Disposition: Home or Self Care (Routine Discharge) 05/06/2025 Travel 04/23/[address] [address] Quinten Montelongo MD Prior Authorization (Nurtec 75 mg ) 04/22/[address] [address] Quinten Montelongo MD Medication Request 04/18/2025 1:40 PM CDT Office Visit [address] [address] Quinten Montelongo MD Migraine (Patient states having increase in migraines.) 04/18/2025 Travel from Last 3 Months Immunizations Immunization Administration Dates Next Due Flucelvax 6 Months+ (Prefilled Syringe) 07/24/20 Fluzone 6 Months+ Quad (0.5 mL Prefilled Syringe ) 10/01/2021 Influenza (Generic) 07/25/2019,07/10/2016 Influenza Adult (Generic) 07/27/2020 Tdap (Adacel) 03/08/2023 Family History Medical History Relation Comments Hypertension Father Relation Status Comments Father Alive Mother Alive Social History Tobacco Use Types Packs/Day Years Used Date Smoking Tobacco: Never Smokeless Tobacco: Never Tobacco Cessation:Counseling Given: No Alcohol Use Standard Drinks/Week Comments Never 0 [...] AM CDT Sexual Orientation Not on file Last Filed Vital Signs Vital Sign Reading Time Taken Comments Blood Pressure 102/60 05/14/2025 11:00 AM CDT Pulse 66 05/14/2025 11:00 AM CDT Temperature 36.5 C (97.7 F) 05/14/2025 11:00 AM CDT Respiratory Rate 16 05/14/2025 11:00 AM CDT Oxygen Saturation 98% 05/14/2025 11:00 AM CDT Inhaled Oxygen Concentration - - Weight 68.9 kg (152 lb) 05/14/2025 11:00 AM CDT Height 167.6 cm (5' 6) 05/14/2025 11:00 AM CDT Body Mass Index 24.53 05/14/2025 11:00 AM CDT Plan of Treatment Upcoming Encounters Date Type Department Care Team (Late st Contact Info) Description 06/17/2025 11:00 AM CDT Office Visit [facility] - [facility] 3 [facility], [address] [place] [phone] Carey Gutiérrez NP 3 [facility] [address] [place] [address] 06/25/2025 9:00 AM CDT Office Visit [facility] Medical [facility] Family & Internal Medicine [address] [address] Quinten Montelongo MD [address] [place] [address] 09/04/2025 7:00 AM CONCRETE FORM SETTER AND FINISHER Office Visit [facility] Medical Group Family & Internal Medicine [address] [address] Quinten Montelongo MD [address] [place] [address] Health Maintenance Due Date Last Done Comments Hepatitis C 2001 Hepatitis B Vaccines (1 of 3 - 19+ 3-dose series) 2002 HPV Vaccines (1 - 3-dose SCD M series) 2010 Mammogram Screening 2023 Annual Physical 08/20/2025 08/20/2024, 03/08/2023, 10/01/2021 COVID-19 Vaccine (3 - 2023-2 5 season) 2025 01/07/2021, 12/17/2020 Postponed from 06/10/2024 (Patient Refused) DTaP, Tdap and Td Vaccines ( 2 - Td or Tdap) 03/08/2033 03/08/2023 PHQ-2 (Physician [place]) Completed 05/14/2025 Meningococcal B Vaccine Aged Out No l onger eligible based on patient's age to complete this topic Meningococcal Vaccine Aged Out No mariam pretty eligible based on patient's age to complete this topic Pneumococcal Vaccine: Pediatrics (0 to 5 Years) and At-Risk Patients (6 to 49 Years) Aged Out No longer eligible b ased on patient's age to complete this topic RSV Immunizations Under 20 Months Aged Out No longer eligible b ased on patient's age to complete this topic Procedures Procedure Name Priority Date/Time Associated Diagnosis Comments MRI BRAIN WWO CON Routine 05/06/2025 9:5 1 AM CDT Migraine with aura and without status migrainosus, not intractable from Last 3 Months Results * MRI BRAIN WWO CON (05/06/2025 9:51 AM CDT) Anatomical Region Laterality Modality Head Magnetic Resonan ce 05/14/2025 11:4 6 AM CDT Impressions 05/14/2025 11:49 AM CDT IMPRESSION: 1. Essentially unremarkable MRI of the brain without and with contrast. Referred By: QUINTEN MONTELONGO Interpreted By: Pedro Bui MD, 05/14/2025 11:46 AM Narrative 05/14/2025 11:49 AM CDT [address] [place] [address] INDICATION: Worsening headache. History of migraines. EXAMINATION: MRI brain with and without contrast. TECHNIQUE: Multiplanar and multisequence MRI images of the brain were obtained before and after administration of 10 mL Dotarem intravenously without adverse event. COMPARISON: None FINDINGS: NOTE: These images were only made available for my review on 05/14/2025 No diffusion restriction or evidence of acute infarct. No intracranial mass, mass effect, or midline shift. Postcontrast images reveal no abnormal intracranial enhancement. Ventricles and extra-axial/subarachnoid spaces are unremarkable. No extra-axial collections. Proximal portions of the major intracranial arterial flow voids are patent. No hemorrhagic foci of susceptibility seen. Craniocervical junction, sellar content, pineal region are unremarkable. Mastoid air cells and paranasal sinuses are clear. Visualized orbits unremarkable. Procedure Note Pedro Bui MD - 05/14/2025 [facility] [address] [facility] [place] [facility] [place] [address] INDICATION: Worsening headache. History of migraines. EXAMINATION: MRI brain with and without contrast. TECHNIQUE: Multiplanar and multisequence MRI images of the brain wereobtained before and after administration of 10 mL Dotarem intravenouslywithout adverse event. COMPARISON: None FINDINGS: NOTE: These images were only made available for my review on 05/14/2025 No diffusion restriction or evidence of acute infarct. No intracranialmass, mass effect, or midline shift. Postcontrast images reveal noabnormal intracranial enhancement. Ventricles and extra-axial/subarachnoidspaces are unremarkable. No extra-axial collections. Proximal portions ofthe major intracranial arterial flow voids are patent. No hemorrhagic fociof susceptibility seen. Craniocervical junction, sellar content, pinealregion are unremarkable. Mastoid air cells and paranasal sinuses areclear. Visualized orbits unremarkable. IMPRESSION: 1. Essentially unremarkable MRI of the brain without and with contrast. Referred By: QUINTEN MONTELONGO Interpreted By: Pedro Bui MD, 05/14/2025 11:46 AM us Quinten Montelongo MD MRI Final Result from Last 3 Months Insurance Care Teams Manager Summer Relationship Specialty Start Date End Date Quinten Montelongo MD [address] [place] [address] PCP - General INTERNAL MEDICINE 01/25/19
--- OUTSIDE RECORDS SUMMARY | 2025-05-20 15:49 | XMS_ITS | Encounter Summary ---
Author Organization [facility] Address [address] [place] [address] Care Team Providers Care Stubber Name Role Phone Quinten Montelongo MD Primary Care Provider [phone] Reason for Visit * Reason Onset Date Comments Prior Authorization 05/20/2025 Ubrelvy 100 mg tablets Encounter Details Date Type Department Care Team (Late st Contact Info) Description 05/20/2025 Telephone [facility] Medical Group Family & Internal Medicine [address] [address] Quinten Montelongo MD [address] [place] [address] Prior Authorization (Ubrelvy 100 mg tablets ) Social History Tobacco Use Types Packs/Day Years [...] as of this encounter Progress Notes * Elena Carrasquillo MA - 05/20/2025 2:45 PM CDT Images from the original note were not included. PA approved for Ubrelvy 100 mg tablets, nena carrillo Approved Prior authorization approved Payer: [employer] [facility] [phone] Note from payer: Your request was approved based on the initial information provided at the time ofthe coverage request submission. Please allow additional time for the final decision to be made andadded to the patient's account. Electronic appeal: Not supported View History * Elena Carrasquillo MA - 05/20/2025 2:09 PM CDT PA pending via [employer] for Ubrelvy 100 mg tablets, nena carrillo documented in this encounter Plan of Treatment Upcoming Encounters Date Type Department Care Team (Late st Contact Info) Description 06/17/2025 11:00 AM CDT Office Visit [facility] Multispecialty Care - [facility] 3 [facility], [address] [place] [phone] Carey Gutiérrez NP 3 [facility] [address] [place] [address] 06/25/2025 9:00 AM CDT Office Visit [facility] Family & Internal Medicine [address] [phone] Quinten Montelongo MD [address] [place] [address] 09/04/2025 7:00 AM MINERALOGY PROFESSOR Office Visit [facility] Family & Internal [address] [phone] Quinten Montelongo MD [address] [place] [address] documented as of this encounter Visit Diagnoses Not on filedocumented in this encounter Additional Health Concerns Assessment Noted Time PHQ-9 Depression Total Score: 0 10/01/20 21 8:10 AM MINERALOGY PROFESSOR documented as of this encounter Care Teams Stubber Relationship Specialty Start Date End Date Quinten Montelongo MD [address] [place] [phone] PCP - General INTERNAL MEDICINE 01/25/19 documented as of this encounter
--- OUTSIDE RECORDS SUMMARY | 2025-05-20 15:49 | XMS_ITS | Clinical Summary ---
Author Organization [facility] Care Team Providers Care Pest Control Worker Helper Name Role Phone Unavailable Primary Care Provider Unavailabl e Social History Tobacco Use Types Packs/Day Years Used Date Smoking Tobacco: Never Assessed Comments Unknown Sex and Gender Information Value Date Recorded Sex Assigned at Not on file Legal Sex Female 12:41 PM GANG BOSS Gender Identity Not on file Sexual Orientation Not on file Plan of Treatment Health Maintenance Due Date Last Done Comments Hepatitis C Virus (HCV) Screening 1983 TdaP Immunization 1983 Hepatitis B Immunization (1 of 3 - 19+ 3-dose series) 2002 Pap Smear 01/10/2004 Human Papillomavirus (HPV) Immunization (1 - 3-dose SCDM series) 2010 Cervical Cancer Screening (CCS) 2013 HPV/Cotest 2013 SARS-COV-2 Immunization ( season) 2024 Influenza Immunization (#1) 06/10/202507/10, 07/24/2019, 09/10/2018, Additional history exists Respiratory Syncytial Virus (RSV) Immunization (Adult) (1 [...]
--- OUTSIDE RECORDS SUMMARY | 2025-05-20 15:49 | XMS_ITS | Encounter Summary ---
Author Organization [facility] Address [address] [place] [address] Care Team Providers Care Silver Designer Name Role Phone Quinten Montelongo MD Primary Care Provider [phone] Encounter Details Date Type Department Care Team (Late Contact Info) Description 07/28/2023 EnterMedia Message Enc [facility] Family and Internal Medicine - [place] [address] [facility] [address] [place] [address] Myc[place], [facility] Provider Screening Social History Tobacco Use Types Packs/Day Years Used Date Smoking Tobacco: Never Smokeless Tobacco: Never Alcohol Use Standard Drinks/Week Comments No 0 (1 standard drink = 0.6 oz pur e alcohol) AUDIT-C Answer Date Recorded Frequency of Alcohol Consumption Never 01/25/2019 Average Number of Drinks Not on file 019 Frequency of Binge Drinking Not on file 01/08 PHQ-2 Answer Date Recorded Patient Health Questionnaire-2 Score 0 03/08/2023 Comments No Sex and Gender Information Value Date Recorded Sex Assigned at Female 04/18/2025 2:02 PM CDT Legal Sex Female 8:51 PM CDT Gender Identity Female 05/14/2025 10:59 AM CDT Sexual Orientation Not on file documented as of this encounter Plan of Treatment Upcoming Encounters Date Type Department Care Team (Late Contact Info) Description 06/17/2025 11:00 AM CDT Office Visit [facility] Multispecialty Care - [address], [address] [place] [phone] Carey Gutiérrez, RAD TECH 3 [facility] [address] [place] [address] 06/25/2025 9:00 AM CDT Office Visit [facility] Family [facility] Internal Medicine [address] [phone] Quinten Montelongo MD [address] [place] [address] 09/04/2025 7:00 AM TALENT ACQUISITION SOURCER Office Visit [facility] Family & Internal [address] [address] Quinten Montelongo MD [address] [place] [address] documented as of this encounter Visit Diagnoses Not on filedocumented in this encounter Additional Health Concerns Assessment Noted Time PHQ-9 Depression Total Score: 0 10/01/20 21 8:10 AM TALENT ACQUISITION SOURCER documented as of this encounter Care Teams Silver Designer Relationship Specialty Start Date End Date Quinten Montelongo MD [address] [place] [address] PCP - General INTERNAL MEDICINE 01/25/19 documented as of this encounter
--- NOTE | 2025-05-20 17:07 | ECG_ITS ---
Test Date: 2025-05-20 17:58:51 Measurements Intervals [place] Rate: 76 P: 69 [place]: 148 QRS: 50 QRSD: 85 T: 49 QT: 364 QTc: 410 Interpretive Statements SINUS RHYTHM BASELINE ARTIFACT- I, II, AVR, AVL, AVF NORMAL ECG No previous ECG available for comparison Electronically Signed On 05-20-2025 19:52:31 CDT by Jann Encarnacion D.O.
--- OUTSIDE RECORDS SUMMARY | 2025-05-20 17:42 | XMS_ITS | Clinical Summary ---
Author Organization [facility] Care Team Providers Care Brand Recorder Name Role Phone Unavailable Primary Care Provider Unavailabl e Social History Tobacco Use Types Packs/Day Years Used Date Smoking Tobacco: Never Assessed Comments Unknown Sex and Gender Information Value Date Recorded Sex Assigned at Not on file Legal Sex Female 12:41 PM TANK CREWMEMBER Gender Identity Not on file Sexual Orientation [...]
--- OUTSIDE RECORDS SUMMARY | 2025-05-20 17:42 | XMS_ITS | Encounter Summary ---
Author Organization [facility] Address [address] [place] [address] Care Team Providers Care Indirect Sales Representative Name Role Phone Quinten Montelongo MD Primary Care Provider [phone] Encounter Details Date Type Department Care Team (Late Contact Info) Description 07/28/2023 GoVoluntr Message Enc [facility] Family and Internal Medicine - [place] [address] [facility] [address] [place] [address] Myc[place], [facility] Provider Screening Social History Tobacco Use Types [...] Description 06/17/2025 11:00 AM CDT Office Visit [facility] Multispecialty Care - [address], [address] [place] [phone] Carey Gutiérrez, WINDING INSPECTOR 3 [facility] [address] [place] [address] 06/25/2025 9:00 AM CDT Office Visit [facility] Family & Internal Medicine [address] [phone] Quinten Montelongo MD [address] [place] [address] 09/04/2025 7:00 AM ADMISSIONS COUNSELOR Office Visit [facility] Family & Internal [address] [address] Quinten Montelongo MD [address] [place] [address] documented as of this encounter Visit Diagnoses Not on filedocumented in this encounter Additional Health Concerns Assessment Noted Time PHQ-9 Depression Total Score: 0 10/01/20 21 8:10 AM ADMISSIONS COUNSELOR documented as of this encounter Care Teams Indirect Sales Representative Relationship Specialty Start Date End Date Quinten Montelongo MD [address] [place] [address] PCP - General INTERNAL MEDICINE 01/25/19 documented as of this encounter
--- OUTSIDE RECORDS SUMMARY | 2025-05-20 17:42 | XMS_ITS | Encounter Summary ---
Author Organization [facility] Address [address] [place] [address] Care Team Providers Care Beamer Hand Name Role Phone Quinten Montelongo MD Primary Care Provider [phone] Encounter Details Date Type Department Care Team (Latest Contact Info) Description 06/20/2018 Abstract [facility] , Rosalva Denton MD Social [...] Description 06/17/2025 11:00 AM CDT Office Visit [facility] Multispecialty Care - [facility] [address] [facility], [address] [place] [phone] Carey Gutiérrez NP 3 [facility] [address] [place] [address] 06/25/2025 9:00 AM CDT Office Visit [facility] Family & Internal Medicine - [address] [address] Quinten Montelongo MD [address] [place] [phone] 09/04/2025 7:00 AM REGIONAL DIRECTOR OF FINANCE Office Visit [facility] Family & Internal Medicine - [place] [address] [place] [address] Quinten Montelongo MD [address] [place] [address] documented as of this encounter Visit Diagnoses Not on filedocumented in this encounter Care Teams Beamer Hand Relationship Specialty Start Date End Date Quinten Montelongo MD [address] [place] [address] PCP - General INTERNAL MEDICINE 01/25/19 documented as of this encounter
--- OUTSIDE RECORDS SUMMARY | 2025-05-20 17:42 | XMS_ITS | Clinical Summary ---
Author Organization [facility] Address [address] [place] [address] Care Team Providers Care Heel Splitter Name Role Phone Quinten Montelongo MD Primary Care Provider [phone] Allergies Active Allergy Reactions Criticality Noted Date [...] 30-60 minutes prior to MRI. Must have compressed air pile driver operator for appointment . 2 tablet 04/22/20 25 [...] cystectomy for a dermoid. TVUS 03/27 showed [id number] multiloculated cyst. She was counseled regarding low [...] Overview: Added automatically from request for surgery [id number] Anxiety 08/03/2017 Migraine headache 03/09/2017 Encounters Date Type Department Care Team Description 05/20/2025 Telephone [facility] Family & Internal Medicine [address] [address] Quinten Montelongo MD Prior Authorization (Ubrelvy 100 mg tablets ) 05/20/2025 Telephone [facility] Family & Internal Medicine [address] [address] Quinten Montelongo MD Medication Problem 05/15/2025 Results Follow-Up [address] [address] Quinten Montelongo MD MRI BRAIN WWO CON 05/14/2025 10:20 AM CDT Office Visit [address] [address] Quinten Montelongo MD Headache (1 month f/u, MRI results, Nurtec not working) 05/14/2025 Travel 05/06/2025 8:10 AM CDT - 05/06/2025 11:59 PM CDT Hospital Encounter [facility] [address] [place] [address] Quinten Montelongo MD Discharge Disposition: Home or Self Care (Routine Discharge) 05/06/2025 Travel 04/23/[address] [address] Quinten Montelongo MD Prior Authorization (Nurtec 75 mg ) 04/22/[address] [address] Quinten Montelongo MD Medication Request 04/18/2025 1:40 PM CDT Office Visit [address] [address] Quinten Montelongo MD Migraine (Patient states having [...] Description 06/17/2025 11:00 AM CDT Office Visit [facility] Multispecialty Care - [facility] [address] [facility], [address] [place] [address] Carey Gutiérrez NP 3 [facility] [address] [place] [address] 06/25/2025 9:00 AM CDT Office Visit [facility] Medical [facility] Family & Internal Medicine [address] [address] Quinten Montelongo MD [address] [place] [address] 09/04/2025 7:00 AM SCHOOL ADMINISTRATOR Office Visit [facility] Medical Group Family & Internal Medicine [address] [address] Quinten Montelongo MD [address] [place] [address] Health Maintenance Due Date Last Done Comments [...] Td or Tdap) 03/08/2033 03/08/2023 PHQ-2 (Physician [place]) Completed 05/14/2025 Meningococcal B Vaccine Aged Out [...] 11:46 AM Narrative 05/14/2025 11:49 AM CDT [address] [place] [address] INDICATION: Worsening headache. History of migraines. EXAMINATION: [...] Procedure Note Pedro Bui MD - 05/14/2025 [facility] [address] [facility] [place] [address] INDICATION: Worsening headache. History of migraines. EXAMINATION: [...] from Last 3 Months Insurance Care Teams Heel Splitter Relationship Specialty Start Date End Date Quinten Montelongo MD [address] [place] [address] PCP - General INTERNAL MEDICINE 01/25/19
--- OUTSIDE RECORDS SUMMARY | 2025-05-20 17:42 | XMS_ITS | Encounter Summary ---
Author Organization [facility] Address [address] [place] [address] Care Team Providers Care Imaging Assistant Name Role Phone Quinten Montelongo MD Primary Care Provider [phone] Reason for Visit * Reason Onset Date Comments Prior Authorization 05/20/2025 Ubrelvy 100 mg tablets Encounter Details Date Type Department Care Team (Late st Contact Info) Description 05/20/2025 Telephone [facility] Family & Internal Medicine [address] [address] Quinten Montelongo MD [address] [place] [address] Prior Authorization (Ubrelvy 100 mg tablets [...] nena carrillo Approved Prior authorization approved Payer: [facility] [id number] Note from payer: Your request was approved based on the initial information provided at the time ofthe coverage request submission. Please allow additional time for the final decision to be made andadded to the patient's account. Electronic appeal: Not supported View History * Elena Carrasquillo MA - 05/20/2025 2:09 PM CDT [place] pending via [employer] for Ubrelvy 100 mg tablets, nena carrillo documented in this encounter Plan of Treatment Upcoming Encounters Date Type Department Care Team (Late st Contact Info) Description 06/17/2025 11:00 AM CDT Office Visit [facility] Multispecialty Care - [facility] 3 [facility], [address] [place] [address] Carey Gutiérrez NP 3 [facility] [address] [place] [address] 06/25/2025 9:00 AM CDT Office Visit [facility] Family & Internal Medicine [address] [phone] Quinten Montelongo MD [address] [place] [address] 09/04/2025 7:00 AM PRODUCTIVITY ENGINEER Office Visit [facility] Family & Internal [address] [phone] Quinten Montelongo MD [address] [place] [address] documented as of this encounter Visit Diagnoses Not on filedocumented in this encounter Additional Health Concerns Assessment Noted Time PHQ-9 Depression Total Score: 0 10/01/20 21 8:10 AM PRODUCTIVITY ENGINEER documented as of this encounter Care Teams Imaging Assistant Relationship Specialty Start Date End Date Quinten Montelongo MD [address] [place] [address] PCP - General INTERNAL MEDICINE 01/25/19 documented as of this encounter
--- OUTSIDE RECORDS SUMMARY | 2025-05-20 17:42 | XMS_ITS | Clinical Summary ---
Author Organization [facility] Address [address] [place] [address] Care Team Providers Care Contracts Director Name Role Phone Keyanna Argueta MD Primary Care Provider Source Comments [facility] Affiliates and Associated Physician Practices is amultiple site organization consisting of ambulatory clinics and hospital sitesin [place], [place], [place] and [place]. This disclosure is being madepursuant to the Care Everywhere program and may not contain all information available regarding this patient. Last updated 18.[facility] Social History Tobacco Use Types Packs/Day Years Used Date Smoking Tobacco: Never Assessed Comments Unknown Sex and Gender Information Value Date Recorded Sex Assigned at Not on file Legal Sex Female 8:48 AM MARINE CONSULTANT Gender Identity Not on file Sexual Orientation [...] to complete this topic Insurance [facility] Care Teams Contracts Director Relationship Specialty Start Date End Date Keyanna Argueta MD [address] [facility] [address] [place] [address] [place] [phone] PCP - General 01/07/22
--- OUTSIDE RECORDS SUMMARY | 2025-05-20 17:42 | XMS_ITS | Encounter Summary ---
Author Organization [facility] Address [address] [place] [address] Care Team Providers Care Practice Director Name Role Phone Quinten Montelongo MD Primary Care Provider [phone] Encounter Details Date Type Department Care Team (Late st Contact Info) Description 05/15/2025 Results Follow-Up [facility] Medical Group Family & Internal Medicine [facility] [address] [place] [address] Quinten Montelongo MD [facility] [place], [place] [phone] MRI BRAIN WWO CON Social History Tobacco [...] Description 06/17/2025 11:00 AM CDT Office Visit [facility] Multispecialty Care - [facility] 3 [facility], [address] [place] [address] Carey Gutiérrez NP 3 [facility] [address] [place] [address] 06/25/2025 9:00 AM CDT Office Visit [facility] Family & Internal Medicine [address] [address] Quinten Montelongo MD [address] [place] [address] 09/04/2025 7:00 AM CHECK WEIGHER Office Visit [facility] Family & Internal Medicine [address] [phone] Quinten Montelongo MD [address] [place] [address] documented as of this encounter Visit Diagnoses Not on filedocumented in this encounter Additional Health Concerns Assessment Noted Time PHQ-9 Depression Total Score: 0 10/01/20 21 8:10 AM CHECK WEIGHER documented as of this encounter Care Teams Practice Director Relationship Specialty Start Date End Date Quinten Montelongo MD [address] [place] [address] PCP - General INTERNAL MEDICINE 01/25/19 documented as of this encounter
--- OUTSIDE RECORDS SUMMARY | 2025-05-20 17:42 | XMS_ITS | Encounter Summary ---
Author Organization [facility] Address [address] [place] [address] Care Team Providers Care Underground Repairer Name Role Phone Quinten Montelongo MD Primary Care Provider [phone] Reason for Referral * Medication Prior Authorization - Authorized Specialty Diagnoses / Procedures Referred By Contac t Referred To Contact Diagnoses Chronic migraine with aura without status migrainosus, not intractable Emmanuel Arnold DO [address] [place] [address] Phone: tel: fax: Referral ID Status Reason Start Date Expiration Date V isits Requested Visits Authorized [id number] Authorized 04/20/2025 05/20/2026 1 1 Reason for Visit * Reason Onset Date Comments Medication Problem 05/20/2025 Encounter Details Date Type Department Care Team (Late st Contact Info) Description 05/20/2025 Telephone [facility] Medical Group Family & Internal Medicine [facility] [address] [place] [address] Quinten Montelongo MD [address] [place] [address] Medication Problem Social History Tobacco [...] Venlafaxine in place of the Topamax. Nury Sequeira. documented in this encounter Plan of Treatment Upcoming Encounters Date Type Department Care Team (Late st Contact Info) Description 06/17/2025 11:00 AM CDT Office Visit [facility] Multispecialty Care - [facility] 3 [facility], [address] [place] [address] Carey Gutiérrez NP 3 [facility] [address] [place] [address] 06/25/2025 9:00 AM CDT Office Visit [facility] Family & Internal Medicine - [address] [phone] Quinten Montelongo MD [address] [place] [address] 09/04/2025 7:00 AM SECURITY COMPLIANCE SPECIALIST Office Visit [facility] Family & Internal Medicine - [place] [address] [place] [address] Quinten Montelongo MD [address] [place] [address] documented as of this encounter Visit Diagnoses Diagnosis Chronic migraine with aura without status migrainosus, not intractable- Primary documented in this encounter Additional Health Concerns Assessment Noted Time PHQ-9 Depression Total Score: 0 10/01/20 21 8:10 AM SECURITY COMPLIANCE SPECIALIST documented as of this encounter Care Teams Underground Repairer Relationship Specialty Start Date End Date Quinten Montelongo MD [facility]note 2][address] [place] [address] PCP - General INTERNAL MEDICINE 01/25/19 documented as of this encounter
[2025-05-20 17:52] VITALS: BP 121/78; PULSE 82; RESP 19; O2SAT 100
[2025-05-20 18:09] LABS: Hematocrit 40.1 % (37.0-47.0); Hemoglobin 13.7 g/dL (12.0-15.0); Immature Granulocyte Percent A 0.3 % (0-0.5); Lymphocytes Absolute Auto 1.99 K/mm3 (0.9-3.2); Mean Corpuscular HGB Conc 34.2 g/dl (32-36); Mean Corpuscular Hemoglobin 30.8 pg (26-34); Mean Corpuscular Volume 90.1 fl (80-100); Nucleated Red Blood Cells Absolute Auto 0.000 K/mm3 (0.0-0.012); Nucleated Red Blood Cells Perc 0.0 % (0.0-0.2); Platelet Count Result 268 k/mm3 (150-375); Red Blood Count 4.45 M/mm3 (4.2-5.4); White Blood Count 7.0 K/mm3 (4.5-10.0)
[2025-05-20] MEDS: SODIUM CHLORIDE 0.9% IV 1,000 ML 999 ML IV CONT (18:09)
--- NOTE | 2025-05-20 18:30 | ED_ITS ---
HPI - General Adult General Chief complaint: Unspecified Stated complaint: blurry vision, slurred speech, headache Time Seen by Provider: 05/20/25 17:06 Source: patient Mode of arrival: ambulatory Limitations: no limitations History of Present Illness HPI narrative: Patient is a 40-year-old female who presents the ED with multiple complaints. Patient is concerned she may have accidentally overdosed on her estradiol patches. She reports she typically changes are patch once a week. Last Tuesday, she was having difficulty getting a new patch to stick to her skin. She cut the patch and half and placed on herself. She reports she began feeling very ill the next day. Reports anxiety, lightheadedness, difficulty focusing, nausea, diarrhea, right lower abdominal discomfort, headaches. She feels she may have received too much of the estradiol when she cut the patch. Today, while at work, she experienced an episode of blurry vision. She then prompted here for further evaluation. Denies chest pain, shortness breath, focal numbness or weakness. Related Data Home Medications ?Medication ?Instructions ?Recorded ?Confirmed ?Last Taken ?Type fexofenadine 60 mg tablet (Chen 60 mg PO Q12H 11/09/21 01/29/25 Unknown History Allergy) multivitamin 1 tablet PO DAILY 12/28/21 01/29/25 Unknown History Allergies Allergy/AdvReac Type Severity Reaction Status Date / Time loratadine Allergy Severe see below Verified 05/20/25 15:57 Review of Systems 2 Review of Systems: All systems reviewed & are unremarkable except as noted in HPI. All systems reviewed & are unremarkable except as noted in HPI and below PMFSH Past Medical History Medical History Strain of left elbow and forearm Leiomyoma Migraines Anxiety Surgical History Surgical History H/O: hysterectomy (01/06/22) RATLH with Left salpingectomy H/O ovarian cystectomy 05/19/17 lt ovarian cystectomy w/Hscope D&C/novasure ablation--dermoid/benign mature tertoma History of oophorectomy, unilateral 04/09/18 ovarian torsion History of tonsillectomy 1993 Family History Family History Father Hypertension Grandparent Heart disease paternal grandfather Diabetes mellitus paternal grandfather Social History Social History Smoking status: Never smoker Alcohol intake: never Substance use: never Substance use type: does not use Do You Feel Safe in your Home?: Yes Lack of Transportation: No Lack of Food: Never True Current Housing: I Have Housing Concerned About Future Housing: No Difficulty Paying Gas/Electric Bills: No Currently Unemployed: No Education: Master's Degree or Higher Difficulty w/ Childcare or Family Care: No Living arrangements: with family Additional living arrangements comments: spouse Occupation/Education: occupation Additional occupation/education comments: teacher Gender identity (if verbalized by the patient): Female Sexual Orientation (if Verbalized by the Patient): Straight or Heterosexual Spiritual care concerns: No Exam 2 Narrative: GENERAL: Well appearing, well-nourished, non-toxic, in no acute distress. HEAD: Normocephalic, atraumatic. EYES: PERRL/EOMI, conjunctiva clear, no nystagmus RESPIRATORY: Airway patent, respirations nonlabored. Clear to auscultation bilaterally, no rales, rhonchi, wheezing. CARDIOVASCULAR: Regular rate and rhythm without murmurs, rubs, or gallops. ABDOMINAL: Soft, mild TTP in right lower abdomen, nondistended. Normoactive BS. MUSCULOSKELETAL: Moves all extremities. No gross deformities. SKIN: Warm, dry, normal color. NEURO: A&O X3. Speech slightly slow but clear. Cranial nerves II-XII grossly intact. Steady gait. No ataxic movements. Strength 5 of 5 in upper and lower extremities bilaterally. No pronator drift. Equal facility maintenance helper strength bilaterally. PSYCHIATRIC: Mildly anxious appearing. Normal interaction. Course Vital Signs Vital signs: Vital Signs Temperature 97.5 F L 05/20/25 15:48 Pulse Rate 108 H 05/20/25 15:48 Respiratory Rate 20 05/20/25 15:48 Blood Pressure 167/94 H 05/20/25 15:48 Pulse Oximetry 98 05/20/25 15:48 Oxygen Delivery Room Air 05/20/25 15:48 Temperature 97.5 F L 05/20/25 15:48 Pulse Rate 91 08/11/25 21:00 Respiratory Rate 18 05/20/25 21:00 Blood Pressure 116/80 05/20/25 21:00 Pulse Oximetry 98 05/20/25 21:00 Oxygen Delivery Room Air 05/20/25 15:48 Medical Decision Making MDM Narrative Medical decision making narrative: Patient presented to ED with HAs, N/V/D, anxiety, intermittent blurry vision, concerned for estradiol overdose due to malfunction of her estradiol patch over the weekend. Patient was initially hypertensive, tachycardic upon arrival. These were improved by the time of my evaluation. She is neurologically intact upon my evaluation. No focal deficits. CT brain without acute findings. EKG without ischemic changes. Basic laboratory studies are fairly unremarkable. No leukocytosis or anemia. Stable electrolytes. Stable kidney function. Viral swabs are negative. UA with evidence of dehydration. No signs of infection. CT scan of abdomen/pelvis was obtained and does show distended bladder with mild hydro. Likely related to fluid administration in the ED. Patient did have large void after CT scan. Otherwise denies issues with urination. She is feeling improved after fluids in the ED. States symptoms are improved. Discussed possibility of estradiol side effects related to the patch, viral infection, gastroenteritis. Feel patient is otherwise safe for discharge home at this time. Advised close follow-up with OBGYN regarding estradiol administration. Will prescribe Zofran for home, advised patient to stay well hydrated. She is in agreement with plan. Feels ready to go home. Discussed strict return precautions. Discharged in stable condition. Medical Records Medical records reviewed: Yes I reviewed the external patient's medical records. Vital Signs Vital Signs: Vital Signs Temperature 97.5 F L 05/20/25 15:48 Pulse Rate 108 H 05/20/25 15:48 Respiratory Rate 20 05/20/25 15:48 Blood Pressure 167/94 H 05/20/25 15:48 Pulse Oximetry 98 05/20/25 15:48 Oxygen Delivery Room Air 05/20/25 15:48 Temperature 97.5 F L 05/20/25 15:48 Pulse Rate 91 05/20/25 21:00 Respiratory Rate 18 05/20/25 21:00 Blood Pressure 116/80 05/20/25 21:00 Pulse Oximetry 98 05/20/25 21:00 Oxygen Delivery Room Air 08/11/25 15:48 Lab Data Lab results reviewed: Yes I reviewed the patient's lab results. 05/20/25 18:02 05/20/25 18:02 Labs: Lab Results 05/20/25 05/20/25 05/20/25 Range/Units 18:02 18:15 19:40 WBC 7.0 (4.5-10.0) K/mm3 RBC 4.45 (4.2-5.4) M/mm3 Hgb 13.7 (12.0-15.0) g/dL Hct 40.1 (37.0-47.0) % MCV 90.1 (80-100) fl MCH 30.8 (26-34) pg MCHC 34.2 (32-36) g/dl RDW 11.8 (11.5-14.5) % Plt Count 268 (150-375) k/mm3 MPV 9.1 (7.4-10.4) fl Immature Gran % (Auto) 0.3 (0-0.5) % Neut % (Auto) 66.0 (45.5-73.1) % Lymph % (Auto) 28.4 (18.3-44.2) % [place] % (Auto) 4.6 (2.6-8.5) % Eos % (Auto) 0.1 (0-4.4) % Baso % (Auto) 0.6 (0.2-1.2) % Lymph # (Auto) 1.99 (0.9-3.2) K/mm3 [place] # (Auto) 0.3 (0.1-0.6) K/mm3 Eos # (Auto) 0.0 (0-0.3) K/mm3 Baso # (Auto) 0.0 (0.0-0.1) K/mm3 Abs Immat Gran (auto) 0.02 (0.00-0.031) K/mm3 Absolute Neuts (auto) 4.6 (1.3-6.7) K/mm3 Absolute Nucleated RBC 0.000 (0.0-0.012) K/mm3 Nucleated RBC % 0.0 (0.0-0.2) % Sodium 136 L (137-145) mmol/L Potassium 3.7 (3.4-5.0) mmol/L Chloride 104 (98-107) mmol/L Carbon Dioxide 24 (22-30) mmol/L Anion Gap 8 (4-12) mmol/L BUN 5 L (7-17) mg/dL Creatinine 0.72 (0.7-1.0) mg/dL Estim Creat Clear Calc 82 ml/min Estimated GFR > 60 (59 - ) Glucose 99 (65-110) mg/dL Calcium 9.3 (8.4-10.2) mg/dL Magnesium 1.8 (1.6-2.3) mg/dL Total Bilirubin 1.6 H (0.2-1.3) mg/dL AST 26 (14-36) U/L ALT 15 (6-35) U/L Alkaline Phosphatase 51 (38-126) U/L Total Protein 7.0 (6.3-8.2) g/dL Albumin 4.4 (3.5-5.1) g/dL Lipase 157 (23-300) U/L Urine Color Dark yellow (Yellow) Urine Appearance Clear (Clear) Urine pH 5.5 (5.0-9.0) Ur Specific [place] > 1.045 H (1.001-1.035) Urine Protein Negative (Negative) mg/dL Urine Glucose (UA) Negative (Negative) mg/dL Urine Ketones 2+ H (Negative) mg/dL Ur Blood (Man) Negative (Negative) Urine Nitrate Negative (Negative) Urine Bilirubin Negative (Negative) Urine Urobilinogen 0.2 (<2.0) mg/dL Leukocyte Esterase Rfl Negative (Negative) TOÑO/UL Influenza A (RT-PCR) Negative (Negative) Influenza B (RT-PCR) Negative (Negative) RSV (RT-PCR) Negative (Negative) SARS-CoV-2 RNA (RT-PCR) Negative (Negative) Imaging Data Attestation: I personally reviewed and interpreted this imaging study as follows: Radiologist's impression: ITS Impressions Head CT 05/20/25 18:34 Impression: No acute intracranial hemorrhage or suspicious mass effect. Abdomen/Pelvis CT 05/20/25 19:47 IMPRESSION: Mild right-sided hydroureteronephrosis, possibly secondary to bladder distention. Otherwise, no acute findings within the lower chest, abdomen or pelvis, as detailed above. ECG Data EKG #1: Attestation: I personally reviewed and interpreted this ECG as follows: ECG completion date: 05/20/25 ECG completion time: 17:58 EKG Interpretation: normal rate (76), sinus rhythm and no ST changes Discharge Plan Discharge Clinical Impression: Nausea, Alteration in vision, Dehydration Headache Qualifiers: Headache type: unspecified Headache chronicity pattern: acute headache I ntractability: not intractable Qualified Code(s): R51.9 - Headache, unspecified Patient Disposition: Home Condition: Stable Instructions: Antibiotic Form, Dehydration (ED), Acute Nausea and Vomiting (ED) Additional Instructions: Your workup here was reassuring. Stay well hydrated at home. You may use Tylenol as needed for further headaches. You may use Zofran as needed for further nausea. Follow-up with your primary care doctor and OBGYN for further evaluation. Avoid using the estradiol patches any further until seen by OBGYN. Return to the ED if you experience worsening or severe symptoms, numbness or weakness of 1 side of the body, severe dizziness, passing out, unable to keep down food or drink, severe pain, or any other symptoms of concern. Patient Language: Portuguese Prescriptions: New ondansetron 4 mg tablet,disintegrating 4 mg PO Q8H PRN (Reason: nausea and vomiting) Qty: 15 0RF No Action fexofenadine [Chen Allergy] 60 mg tablet 60 mg PO Q12H multivitamin Tablet 1 tablet PO DAILY progesterone micronized [Prometrium] 200 mg capsule 200 mg PO QHS Qty: 90 3RF estradiol [Climara] 0.05 mg/24 hr patch weekly 1 patch transdermal WEEKLY Qty: 4 0RF Follow-up/Referrals: UNKNOWN,DOCTOR [Primary Care Provider] - Time of Disposition: 21:35
[2025-05-20 18:32] LABS: Alanine Aminotransferase 15 U/L (6-35); Albumin Level 4.4 g/dL (3.5-5.1); Alkaline Phosphatase 51 U/L (38-126); Anion Gap 8 mmol/L (4-12); Aspartate Amino Transferase 26 U/L (14-36); Bilirubin,Total 1.6 mg/dL (0.2-1.3); Blood Urea Nitrogen 5 mg/dL (7-17); Calcium 9.3 mg/dL (8.4-10.2); Carbon Dioxide 24 mmol/L (22-30); Chloride 104 mmol/L (98-107); Estimated CRCL calculation 82 ml/min; Estimated Glomerular Filt Rate > 60; Glucose 99 mg/dL (65-110); Lipase 157 U/L (23-300); Magnesium 1.8 mg/dL (1.6-2.3); Potassium 3.7 mmol/L (3.4-5.0); Sodium 136 mmol/L (137-145); Total Protein 7.0 g/dL (6.3-8.2)
[2025-05-20 18:57] LABS: Influenza A QL RT-PCR Negative (Negative); Influenza B QL RT-PCR Negative (Negative); RSV RNA, RT-PCR Negative (Negative); SARS-CoV-2 RNA PCR Negative (Negative)
[2025-05-20 19:49] LABS: Add Urine Microscopic? YES; Appearance Urine Clear (Clear); Glucose Urine UA Negative (Negative); Leukocyte Esterase Ur Negative LEU/UL (Negative); Nitrate Urine Negative (Negative); Specific Grav Ur > 1.045 (1.001-1.035)
[2025-05-20 21:00] VITALS: BP 116/80; PULSE 91; RESP 18; O2SAT 98
== END 2025-05-20 21:45 | disposition home or self-care (01) ==
PROVIDERS: Emergency Provider Physician Assistant
DX: R11.0 Nausea (principal); H53.8 Other visual disturbances; E86.0 Dehydration; R51.9 Headache, unspecified; F41.9 Anxiety disorder, unspecified; Z20.822 Contact with and (suspected) exposure to COVID-19
CPT/HCPCS: 36415; 70450; 74177; 80053; 81001; 83690; 83735; 85025; 87637; 93005; 96360; 99284; J7030; Q9967